=== PATIENT | female | born 1940 | race African-American/Black ===

== ENCOUNTER 2022-11-27 22:51 | Emergency (ER) | payer OTHER, MEDICAID ==
[~2022-11-27] VITALS: Ht 170.2 cm; Wt 91.0 kg
[2022-11-27 22:56] VITALS: BP 195/129
[2022-11-27] MEDS ORDERED: DEXTROSE 50% WATER 50ML SYRINGE IV ONE ×2 (23:08→23:15)
[2022-11-27 23:36] LABS: BASOPHILS % 0.3 % (0.0-2.0); EOSINOPHILS % 1.5 % (0.0-5.0); HEMATOCRIT. 42.5 % (36.0-48.0); HEMOGLOBIN. 13.6 g/dL (12.0-16.0); LYMPHOCYTES % 28.4 % (20.0-50.0); MEAN CORPUSCULAR HEMOGLOBIN 27.1 pg (28.0-32.0); MEAN CORPUSCULAR VOLUME 84.9 fL (81.0-99.0); MEAN PLATELET VOLUME 8.8 fl (7.4-10.4); MONOCYTES % 7.6 % (2.0-8.0); NEUTROPHILS % 62.2 % (40.0-76.0); PLATELET 340 x1000/uL (130-400); RED BLOOD CELL COUNT 5.01 mill/uL (4.2-5.4)
[2022-11-27 23:42] LABS: CHLORIDE 106 mEq/L (98-107)
== END 2022-11-28 02:56 | disposition home or self-care (01) ==
LOC: ER 22:51
DX: E11.649 Type 2 diabetes mellitus with hypoglycemia without coma (principal); I49.9 Cardiac arrhythmia, unspecified
CPT/HCPCS: 36415; 71045; 80053; 82962; 83880; 84484; 85025; 93005; 96374; 99285